=== PATIENT | male | born 1945 | race Caucasian/White ===

== ENCOUNTER → 2020-11-17 | Outpatient (CLI) | payer OTHER | LOC: SJCVC 14:25 | PROVIDERS: ATTEND Internal Medicine Cardiovascular Disease | DX: I48.0 Paroxysmal atrial fibrillation (principal); I48.3 Typical atrial flutter; I49.5 Sick sinus syndrome; I10 Essential (primary) hypertension; E66.9 Obesity, unspecified; E78.5 Hyperlipidemia, unspecified; I25.10 Atherosclerotic heart disease of native coronary artery without angina pectoris; N40.0 Benign prostatic hyperplasia without lower urinary tract symptoms; E03.9 Hypothyroidism, unspecified; E11.9 Type 2 diabetes mellitus without complications; Z79.82 Long term (current) use of aspirin; Z79.899 Other long term (current) drug therapy; Z86.16 Personal history of COVID-19 ==

== ENCOUNTER → 2020-11-30 | Outpatient (CLI) | payer OTHER ==
[2020-11-30 10:35] LABS: ABSOLUTE NEUTROPHILS 3.5 thou/uL (1.4-8.2); BASOPHILS 0.5 % (0.0-2.0); EOSINOPHILS 2.7 % (0.0-3.0); HEMATOCRIT 40.9 % (42.0-52.0); HEMOGLOBIN 13.6 gm/dL (14.0-18.0); MCH 29.6 pg (26.0-34.0); MCHC 33.1 g/dL (28.0-37.0); MCV 89.4 fL (80.0-100.0); MONOCYTES 8.2 % (1.0-8.0); PLATELET COUNT 202 thou/uL (150-400); POLYS 59.6 % (36.0-66.0); RBC 4.58 mil/uL (4.50-6.00); WBC 5.9 thou/uL (4.0-11.0)
[2020-11-30 10:50] LABS: CALCIUM 8.9 mg/dL (8.5-10.1); CREATININE 1.1 mg/dL (0.7-1.3); POTASSIUM 4.2 mmol/L (3.5-5.1); TOTAL BILIRUBIN 1.6 mg/dL (0.2-1.0); TOTAL PROTEIN 7.5 g/dL (6.4-8.2)
== END ==
LOC: LAB 09:55
PROVIDERS: ATTEND Internal Medicine Cardiovascular Disease
DX: I25.10 Atherosclerotic heart disease of native coronary artery without angina pectoris (principal); I48.91 Unspecified atrial fibrillation

== ENCOUNTER 2020-12-03 06:18 | Observation (INO) | payer OTHER ==
[~2020-12-03] VITALS: Ht 177.8 cm; Wt 101.6 kg
[2020-12-03 08:32] LABS: ABSOLUTE NEUTROPHILS 3.7 thou/uL (1.4-8.2); BASOPHILS 0.4 % (0.0-2.0); EOSINOPHILS 2.4 % (0.0-3.0); HEMATOCRIT 39.4 % (42.0-52.0); HEMOGLOBIN 13.3 gm/dL (14.0-18.0); LYMPHOCYTES 28.1 % (24.0-44.0); MCH 29.9 pg (26.0-34.0); MCHC 33.8 g/dL (28.0-37.0); MCV 88.6 fL (80.0-100.0); MONOCYTES 8.6 % (1.0-8.0); PLATELET COUNT 200 thou/uL (150-400); POLYS 60.5 % (36.0-66.0); RBC 4.45 mil/uL (4.50-6.00); RDW 12.8 % (10.5-14.5); WBC 6.1 thou/uL (4.0-11.0)
[2020-12-03 08:35] VITALS: BP 141/70
[2020-12-03 08:40] LABS: CALCIUM 8.9 mg/dL (8.5-10.1); CREATININE 1.1 mg/dL (0.7-1.3); POTASSIUM 3.9 mmol/L (3.5-5.1)
[2020-12-03] MEDS ORDERED: TOPROL XL25 MG PO (08:43)
[2020-12-03 08:44] LABS: APTT 26.6 Seconds (24.5-32.8); PROTIME 10.9 Seconds (10.5-12.1)
[2020-12-03] MEDS ORDERED: AVAPRO 150 MG150 MG PO (08:44)
[2020-12-03] MEDS ORDERED: XARELTO20 MG PO (08:44)
[2020-12-03] MEDS ORDERED: ZETIA10 MG PO (08:45)
[2020-12-03] MEDS ORDERED: LEVO-T50 MCG PO (08:45)
[2020-12-03] MEDS ORDERED: CRESTOR40 MG PO (08:45)
[2020-12-03 08:46] LABS: TOTAL BILIRUBIN 1.4 mg/dL (0.2-1.0); TOTAL PROTEIN 7.3 g/dL (6.4-8.2)
[2020-12-03] MEDS ORDERED: ASA81BEC PO (08:46)
[2020-12-03] MEDS ORDERED: FLOMAX0.4 MG PO (08:46)
[2020-12-03] MEDS ORDERED: COQ-10100 MG PO (08:46)
[2020-12-03] MEDS ORDERED: BREO ELLIPTA 11 EACH INH (08:47)
[2020-12-03] MEDS ORDERED: FLONASE 0.05%50 MCG NARES (08:47)
[2020-12-03] MEDS ORDERED: CLARITIN10 M3 PO (08:48)
--- NOTE | 2020-12-03 14:16 | NUR ---
PT ADMITTED TO ROOM [facility] FROM [facility]. No complain of pain noted. @1416 pressur device to right groin taken off by OR nurse. Pt tolerated well. will cont with plan of care.
[2020-12-03 15:33] VITALS: BP 142/84
[2020-12-03 20:18] VITALS: BP 136/75
[2020-12-04 00:27] VITALS: BP 104/68
[2020-12-04 03:20] VITALS: BP 119/70
--- NOTE | 2020-12-04 04:44 | NUR ---
ASSESSMENTS CHARTED, MEDS CHARTED GIVEN. PATIENT UP AT ZAIRA IN ROOM POST SCHEDULED ABLATION. RIGHT GROIN IS C/D/I AND SOFT. RESTING THROUGH MOST OF SHIFT. FALL PRECAUTIONS IN PLACE DURING SHIFT.
[2020-12-04 08:00] VITALS: BP 125/71; BP 144/74
[2020-12-04 09:56] VITALS: BP 125/71
--- NOTE | 2020-12-04 11:33 | P ---
[facility] [place] [address] PROCEDURE REPORT Name: NATA SANTANA Room #: 207-P [facility] M..#: [id number] Admission: 12/03/20 Attend Phys: Caesar Mora MD Discharge: Date of : 47 Report #: [id number] THIS REPORT FOR: cc: Sundeep Ruelas James R. DO Couchonnal, Luis F. MD ~ DOC #: [id number] cc: DO Caesar Castañeda MD DATE OF SERVICE: 12/03/2020 PREOPERATIVE DIAGNOSES: 1. Atrial fibrillation. 2. Bradycardia. POSTOPERATIVE DIAGNOSES: 1. Atrial fibrillation. 2. Bradycardia. INDICATIONS FOR PROCEDURE: The patient is a 75-year-old with recent diagnosis of symptomatic paroxysmal atrial fibrillation, who has been having a symptomatic bradycardia on rate control medications. He is here for AFib ablation. PROCEDURES PERFORMED: 1. Atrial fibrillation ablation -- CPT code 48505. 2. 3D mapping, CPT code 08533. 3. Intracardiac echo, CPT code 40192. ANESTHESIA: The patient underwent general anesthesia with no anesthesia related complications. DESCRIPTION OF PROCEDURE: The patient underwent informed consent. We discussed the details of the procedure including the risks, which include, but not limited to bleeding, vascular damage, stroke, ID, cardiac perforation, damage to the cherokee conduction system requiring permanent pacemaker. He understood these risks and is willing to proceed. The patient was brought to the EP laboratory in a fasting and sedated state and prepped and draped in a sterile fashion. I obtained access to the right femoral vein x 3, placing 8, 9, and 7-Amharic short sheath using the modified Seldinger technique. Next, under fluoroscopy, decapolar catheter was placed easily in the coronary sinus and ICE catheter was placed in the right atrium. At baseline, the patient was in sinus rhythm. Sinus cycle length was 1126 milliseconds, NJ interval 190 milliseconds, QRS duration 81 milliseconds, QT interval 445 milliseconds, AH interval 110 milliseconds and HV interval 47 milliseconds. [facility] [address] [place] [address] PROCEDURE REPORT Name: NATA SANTANA Room #: 207-P [facility]#: [id number] Admission: 12/03/20 Attend Phys: Caesar Mora MD Discharge: Date of : 47 Report #: [id number] Next, using intracardiac ultrasound, I verified that there were 2 left and 2 right pulmonary veins. This was merged with the cardiac CT scan. The patient was systemically heparinized and a transseptal was performed using SL1 sheath and a Juda needle. His transseptal was straightforward and I exchanged the SL1 sheath for the CryoCath sheath and placed the Lasso catheter in the left atrium. Next, a 3D geometry and voltage map of the left atrium was created. Next, a cryoballoon was placed into the left atrium. The left superior pulmonary vein underwent a 4-minute freeze resulting in isolation at 120 seconds. A second freeze of 3 minutes duration was performed. The left inferior pulmonary vein underwent a 4-minute freeze and isolated at 38 seconds. The right superior pulmonary vein underwent a 190 second freeze and did not result in isolation. I came off and then performed a 4-minute freeze which resulted in isolation at 90 seconds. The right inferior pulmonary vein underwent a 3-minute freeze and isolated at 42 milliseconds. There was never any phrenic nerve compromise while isolating the right-sided veins. Esophageal temperatures were also within normal limits. Next, the Lasso catheter was placed back into the left atrium and a repeat voltage map was created, showing wide circumferential ablation of the pulmonary veins. Next, a basic EP study was performed. AV block was noted at 400 milliseconds. Atrial ERP was noted at 270 milliseconds at [address] cycle length. Atrial burst pacing was performed down to 220 milliseconds and I could not induce any AFib or atrial flutter. His sinus node recovery time was 1500 milliseconds. As such, all veins were isolated. His electrical system appeared to be within normal limits and we had no other inducible arrhythmias. There was no evidence of pericardial effusion. The patient received systemic protamine. Catheters and sheaths were pulled and a [id number] suture was performed in the right groin. CONCLUSIONS: 1. Successful AFib ablation with isolation of the pulmonary veins. 2. Normal SA nolan function. 3. Normal AV nolan function. 4. Normal His-Purkinje function. No other inducible arrhythmias on EP study. Caesar Mora MD Vivienne/VIJAY <ELECTRONICALLY SIGNED> By: Caesar Mora MD 12/04/20 1133 1041 30 Caesar Mora MD /nt
--- NOTE | 2020-12-04 11:37 | NUR ---
PT WAS DISCHARGED TO HOME WITH SPOUSE...POST ABLATION INSTRUCTIONS GIVEN..
== END 2020-12-04 11:39 | disposition home or self-care (01) ==
LOC: CATH 06:18 → 2N 12:07
PROVIDERS: ADMIT Internal Medicine Cardiovascular Disease; ATTEND Internal Medicine Cardiovascular Disease
DX: I48.91 Unspecified atrial fibrillation (principal); Z20.822 Contact with and (suspected) exposure to COVID-19; R00.1 Bradycardia, unspecified; I10 Essential (primary) hypertension; E11.9 Type 2 diabetes mellitus without complications; E78.5 Hyperlipidemia, unspecified; N40.0 Benign prostatic hyperplasia without lower urinary tract symptoms; E66.9 Obesity, unspecified; I25.10 Atherosclerotic heart disease of native coronary artery without angina pectoris; Z68.32 Body mass index [BMI] 32.0-32.9, adult; Z79.82 Long term (current) use of aspirin; Z79.899 Other long term (current) drug therapy
CPT/HCPCS: 62110; 62900; 65020; 70005

== ENCOUNTER → 2021-03-04 | Outpatient (CLI) | payer OTHER ==
[~2021-03-04] MED LIST: ASA81BEC PO; AVAPRO 150 MG150 MG PO; BREO ELLIPTA 11 EACH INH; CLARITIN10 M3 PO; COQ-10100 MG PO; CRESTOR40 MG PO; FLOMAX0.4 MG PO; FLONASE 0.05%50 MCG NARES; LEVO-T50 MCG PO; TOPROL XL25 MG PO; XARELTO20 MG PO; ZETIA10 MG PO
== END ==
LOC: SJCVC 12:54
PROVIDERS: ATTEND Internal Medicine Cardiovascular Disease
DX: R00.1 Bradycardia, unspecified (principal); I48.0 Paroxysmal atrial fibrillation; E66.9 Obesity, unspecified; E78.5 Hyperlipidemia, unspecified; I25.10 Atherosclerotic heart disease of native coronary artery without angina pectoris; N40.0 Benign prostatic hyperplasia without lower urinary tract symptoms; E03.9 Hypothyroidism, unspecified; Z79.82 Long term (current) use of aspirin; Z79.899 Other long term (current) drug therapy; Z86.16 Personal history of COVID-19; Z82.49 Family history of ischemic heart disease and other diseases of the circulatory system

== ENCOUNTER → 2021-06-01 | Outpatient (CLI) | payer OTHER | LOC: SJCVC 14:59 | PROVIDERS: ATTEND Internal Medicine Cardiovascular Disease | DX: I48.0 Paroxysmal atrial fibrillation (principal); I49.5 Sick sinus syndrome; I48.3 Typical atrial flutter; I10 Essential (primary) hypertension; E66.9 Obesity, unspecified; E78.5 Hyperlipidemia, unspecified; N40.0 Benign prostatic hyperplasia without lower urinary tract symptoms; E03.9 Hypothyroidism, unspecified; E11.9 Type 2 diabetes mellitus without complications; Z79.82 Long term (current) use of aspirin; Z79.899 Other long term (current) drug therapy; Z86.16 Personal history of COVID-19; Z82.49 Family history of ischemic heart disease and other diseases of the circulatory system ==